=== PATIENT | female | born 1935 | race Caucasian/White ===

== ENCOUNTER → 2017-10-04 | Outpatient (CLI) | payer OTHER ==
[~2017-10-04] VITALS: Ht 165.1 cm; Wt 55.3 kg
[~2017-10-04] MED LIST: CO Q-10100 MG PO; COSOPT OCUMETER10 M1 OPHTHALMIC; ESTRING1 EACH VAG; GABAPENTIN 100100 MG PO; JUICE PLUS PO; LUMIGAN2.5 M1 OPHTHALMIC; PRESERVISION A1 EACH PO; PROBIOTIC1 EAC1 PO; TRETINOIN20 GM TOP; VITAMIN B COMP1 EACH PO; VITAMIN D1000 UNI1 PO
--- NOTE | ~2017-10-04 | P ---
[facility] [address] [place] [address] PROCEDURE REPORT Name: THADDEUS CHAPMAN Room #: [facility]#: [id number] Admission: 10/04/17 Attend Phys: Buster Yip MD Discharge: Date of : 35 Report #: [id number] THIS REPORT FOR: //name// CC: Buster Yip DATE OF SERVICE: 10/04/2017 BRIEF HISTORY: The patient is an 81-year-old woman with dysphagia. She has also had weight loss. Video swallow suggests mild presbyesophagus. She denies typical reflux symptoms. PREOPERATIVE DIAGNOSIS: Dysphagia. POSTOPERATIVE DIAGNOSIS: Dysphagia. MEDICATIONS: Deep sedation with propofol per anesthesia. SPECIMEN: None. ESTIMATED BLOOD LOSS: None. PROCEDURE: EGD and Felipe dilation. FINDINGS: Prior to propofol sedation, procedure of upper endoscopy and dilation were discussed with the patient as well as potential risks and its complications. She indicates she understands and desires to proceed. DESCRIPTION OF PROCEDURE: With the patient in left lateral position, the Olympus video endoscope was inserted in the cervical esophagus under direct vision without difficulty. Examination of this organ through its entire length revealed normal esophageal mucosa down the squamocolumnar junction. The mucosa was intact. I did not see evidence of esophagitis. I did not see any obvious strictures, masses or rings. A hiatus hernia was not seen. I do not see evidence of Alonzo esophagus. There was no endoscopic evidence of reflux esophagitis. The scope was advanced into the stomach, was examined on end view as well as retroflexed views. The gastric mucosa was normal. Upon retroflexion, no abnormalities were seen. No masses were seen in the cardia of the stomach. Pylorus was normal. Duodenum bulb was normal. Postbulbar sweep down to the third portion was normal. At that point, the scope was slowly withdrawn and careful circumferential views confirmed the above findings. Subsequently, she was dilated with an initially passed 50-[place] Felipe dilator. No significant trauma seen after passage of the 50. We then passed a 54. Again, significant trauma was not seen. There was no mucosal tearing. [facility] [address] [place] [address] PROCEDURE REPORT Name: THADDEUS CHAPMAN Room #: [facility].#: [id number] Admission: 10/04/17 Attend Phys: Buster Yip MD Discharge: Date of : 35 Report #: [id number] However, at the level of the cricopharyngeus, there was what appeared to be a hematoma. The wall was flat. There was no mucosal tearing. At this point, it was felt that the dilation had been adequate. No further dilation was pursued. The patient tolerated the procedure well. CONDITION OF THE PATIENT UPON DISCHARGE: Following procedure, the patient was drowsy and arousable. She will be discharged home when fully ambulatory. INSTRUCTIONS TO THE PATIENT AND FAMILY AT THE TIME OF DISCHARGE: No significant esophageal abnormalities identified. She was dilated as described. She does have a component of presbyesophagus, which may be a factor. There are some changes in mucosal color of the cricopharyngeus after dilation. This may be a small hematoma. However, it is flat. We will advise the patient to advance diet as tolerated. If she has further difficulties, she should return to see me in followup. If dysphagia continues to be an issue, esophageal manometry may be helpful. However, dysphagia is mostly for large pills. She does tell me that she has lost her appetite. She also tells me she does not like to cook and she is also picky about what she eats and does not always like food that people bring to her. I would also suggest a dietary supplement. By: [id number] Buster Yip MD /stuart
== END | disposition home or self-care (01) ==
LOC: GI 07:02
DX: R13.19 Other dysphagia (principal); Z90.49 Acquired absence of other specified parts of digestive tract; Z98.41 Cataract extraction status, right eye; Z98.42 Cataract extraction status, left eye; Z98.890 Other specified postprocedural states; Z91.041 Radiographic dye allergy status; Z88.2 Allergy status to sulfonamides; Z88.8 Allergy status to other drugs, medicaments and biological substances; Z79.899 Other long term (current) drug therapy
CPT/HCPCS: 62110; 62900